=== PATIENT | female | born 1990 | race Caucasian/White ===

== ENCOUNTER 2016-05-29 17:14 | Inpatient (IN) | payer OTHER ==
[~2016-05-29] VITALS: Ht 162.5 cm; Wt 68.1 kg
[2016-05-29 17:23] VITALS: BP 111/93
[2016-05-29] MEDS ORDERED: CELEXA10 MG PO (17:27)
[2016-05-29] MEDS ORDERED: NEURONTIN300 MG PO (17:28)
[2016-05-29] MEDS ORDERED: NEXIUM 24HR20 M1 PO (17:28)
[2016-05-29] MEDS ORDERED: Motrin,Rufen800 MG PO (17:28)
[2016-05-29] MEDS ORDERED: IMITREX25 M1 PO (17:28)
[2016-05-29 17:52] LABS: BASO % 0.1 % (0.0-1.0); EOS # 0.1 10*3/uL (0.0-0.4); EOS % 1.4 % (1.0-4.0); HEMATOCRIT 40.8 % (37.0-47.0); HEMOGLOBIN 13.6 g/dl (12.0-16.0); LYMPH # 2.7 10*3/uL (1.3-4.4); LYMPH % 31.8 % (27.0-41.0); MEAN CELL VOLUME 87.6 fl (81.0-99.0); MEAN CORPUSCULAR HGB 29.2 pg (27.0-31.0); MEAN CORPUSCULAR HGB CONC 33.3 g/dl (33.0-37.0); MEAN PLATELET VOLUME 10.1 fl (9.6-12.3); MONO # 0.4 10*3/uL (0.1-1.0); MONO % 4.7 % (3.0-9.0); NEUT # 5.3 10*3/uL (2.3-7.9); NEUT % 61.9 % (47.0-73.0); PLATELET COUNT AUTOMATED 269 10*3/uL (130-400); RED BLOOD COUNT 4.66 10*6/uL (4.10-5.10); RED CELL DISTRI WIDTH 13.2 % (0-14.5); WHITE BLOOD COUNT 8.6 10*3/uL (4.8-10.8)
[2016-05-29 18:07] LABS: ALBUMIN 4.1 gm/dl (3.1-4.5); ALKALINE PHOSPHATASE 114 U/L (45-117); BILIRUBIN, TOTAL 0.3 mg/dl (0.2-1.0); BUN 9 mg/dl (7-24); CARBON DIOXIDE 26 mmol/L (21-32); CHLORIDE 106 mmol/L (98-107); EST GLOM FILT AFRICAN AMERICAN > 60 ml/min; GLUCOSE 101 mg/dL (65-99); MAGNESIUM 2.4 mg/dL (1.5-2.1); POTASSIUM 3.7 mmol/L (3.5-5.1); SGOT/AST 19 IU/L (3-35); SGPT/ALT 18 U/L (12-78); SODIUM 143 mmol/L (136-145); TOTAL PROTEIN 7.8 gm/dL (6.4-8.2)
[2016-05-29 18:30] VITALS: BP 94/70
[2016-05-29 18:39] LABS: BILIRUBIN NEGATIVE (NEGATIVE); BLOOD NEGATIVE (NEGATIVE); CLARITY SL CLOUDY (CLEAR); COLOR YELLOW (YELLOW); GLUCOSE NEGATIVE (NEGATIVE); KETONE NEGATIVE (NEGATIVE); LEUKO ESTERASE NEGATIVE (NEGATIVE); NITRITE NEGATIVE (NEGATIVE); PROTEIN NEGATIVE (NEGATIVE); SPECIFIC GRAVITY 1.025 (1.005-1.030)
[2016-05-29 18:46] LABS: BACTERIA 4+; URINE REFLEX COMMENT YES (NO); WBC 0-2 wbc/hpf (0-5)
[2016-05-29 18:47] LABS: URINE AMPHETAMINES < 1000 (1000ng/ml); URINE BARBITURATES < 200 (200ng/ml); URINE COCAINE > 300 (300ng/ml)
[2016-05-29] MEDS ORDERED: NYSTATIN 5 ML5 ML T (19:08)
[2016-05-29 20:00] VITALS: BP 112/65
[2016-05-30] VITALS: BP 99/47
[2016-05-30 04:00] VITALS: BP 84/46
[2016-05-30 08:00] VITALS: BP 101/49
[2016-05-30 12:00] VITALS: BP 103/57
[2016-05-30 16:00] VITALS: BP 98/52
[2016-05-30 20:00] VITALS: BP 112/68
[2016-05-31 00:16] VITALS: BP 124/62
[2016-05-31 08:00] VITALS: BP 110/54
[2016-05-31] MEDS ORDERED: CARBIDOPA/LEVOD1 TA1 PO (13:01)
[2016-05-31 16:00] VITALS: BP 121/95
[2016-05-31 20:00] VITALS: BP 105/65
[2016-06-01 00:32] VITALS: BP 112/56
[2016-06-01 06:24] LABS: BASO % 0.3 % (0.0-1.0); EOS # 0.2 10*3/uL (0.0-0.4); EOS % 2.7 % (1.0-4.0); HEMATOCRIT 41.7 % (37.0-47.0); HEMOGLOBIN 13.4 g/dl (12.0-16.0); LYMPH # 4.4 10*3/uL (1.3-4.4); LYMPH % 50.3 % (27.0-41.0); MEAN CELL VOLUME 89.9 fl (81.0-99.0); MEAN CORPUSCULAR HGB 28.9 pg (27.0-31.0); MEAN CORPUSCULAR HGB CONC 32.1 g/dl (33.0-37.0); MEAN PLATELET VOLUME 10.9 fl (9.6-12.3); MONO # 0.5 10*3/uL (0.1-1.0); MONO % 5.9 % (3.0-9.0); NEUT # 3.6 10*3/uL (2.3-7.9); NEUT % 40.6 % (47.0-73.0); PLATELET COUNT AUTOMATED 252 10*3/uL (130-400); RED BLOOD COUNT 4.64 10*6/uL (4.10-5.10); RED CELL DISTRI WIDTH 13.2 % (0-14.5); WHITE BLOOD COUNT 8.8 10*3/uL (4.8-10.8)
[2016-06-01 06:48] LABS: EST GLOM FILT AFRICAN AMERICAN > 60 ml/min
[2016-06-01 08:00] VITALS: BP 120/62
[2016-06-01 12:00] VITALS: BP 110/72
== END 2016-06-01 12:39 | disposition home or self-care (01) | DRG 897 ==
LOC: ED 17:14 → EDHOLD 17:36 → 5E 17:36 → EDHOLD 17:47 → 5E 17:59
PROVIDERS: Emergency Medicine; Internal Medicine
DX: F11.23 Opioid dependence with withdrawal (principal); E83.41 Hypermagnesemia; L03.211 Cellulitis of face; F31.9 Bipolar disorder, unspecified; M51.37 Other intervertebral disc degeneration, lumbosacral region; F41.0 Panic disorder [episodic paroxysmal anxiety]; F14.90 Cocaine use, unspecified, uncomplicated; F17.200 Nicotine dependence, unspecified, uncomplicated